=== PATIENT | female | born 1965 | race American Indian/Alaskan Native ===

== ENCOUNTER 2023-03-11 15:00 | Inpatient (IN) | payer MEDICAID ==
[2023-03-11] MEDS ORDERED: Sodium Chloride 0.9% 2.5 ML Syringe FLUSH PRN (15:04)
[2023-03-11] MEDS ORDERED: Sodium Chloride 0.9% 10 ML Syringe FLUSH PRN (15:04)
[2023-03-11 16:16] LABS: BASOPHILS ABSOLUTE AUTO 0.06 K/uL (0.00-0.20); BASOPHILS PERCENT AUTO 0.3 % (0.0-1.0); EOSINOPHILS ABSOLUTE AUTO 0.05 K/uL (0.00-0.45); EOSINOPHILS PERCENT AUTO 0.3 % (0.0-6.0); HEMATOCRIT 32.5 % (37.0-47.0); HEMOGLOBIN 10.5 g/dL (12.0-16.0); IMMATURE GRAN ABSOLUTE AUTO 0.31 K/uL (0.00-0.05); IMMATURE GRAN PERCENT AUTO 1.7 % (0.0-0.4); LYMPHOCYTES ABSOLUTE AUTO 0.95 K/uL (1.00-4.80); LYMPHOCYTES PERCENT AUTO 5.4 % (24.0-44.0); MEAN CORPUSCULAR HEMOGLOBIN 26.1 pg (28.0-32.0); MEAN CORPUSCULAR HGB CONC 32.3 g/dL (32.0-36.0); MEAN CORPUSCULAR VOLUME 80.8 fL (83.0-99.0); MEAN PLATELET VOLUME 11.1 fL (9.4-12.3); MONOCYTES ABSOLUTE AUTO 0.93 K/uL (0.00-0.80); MONOCYTES PERCENT AUTO 5.2 % (0.0-8.0); NEUTROPHILS ABSOLUTE AUTO 15.42 K/uL (1.80-7.70); NEUTROPHILS PERCENT AUTO 87.1 % (41.0-71.0); PLATELET COUNT,PLT 212 K/uL (150-400); RED BLOOD CELL COUNT 4.02 M/uL (4.10-5.30); WHITE BLOOD CELL COUNT,WBC 17.72 K/uL (3.9-11.3)
[2023-03-11 16:37] LABS: A/G RATIO 0.6 (0.9-1.6); ALBUMIN 2.6 g/dL (3.4-5.0); CALCIUM 8.3 mg/dL (8.5-10.1); CARBON DIOXIDE,CO2 21.6 mmol/L (21.0-32.0); EST CRCL DRUG DOSING (CG) 26.4 mL/min; MAGNESIUM 1.3 mg/dL (1.8-2.4); POTASSIUM,K 3.7 mmol/L (3.5-5.1); TSH ULTRASENSITIVE 0.04 uIU/mL (0.36-3.74)
[2023-03-11] MEDS ORDERED: Magnesium Sulfate/Water 2 GM in Premix Bag 1 BAG IV STA (16:47)
[2023-03-11] MEDS ORDERED: Sodium Chloride 0.9% 1,000 ML IV STA ×2 (16:47→20:03)
[2023-03-11 16:56] LABS: COLOR,URINE YELLOW; GLUCOSE,URINE NEGATIVE (NEGATIVE); KETONES,URINE NEGATIVE (NEGATIVE); LEUKOCYTE ESTERASE,URINE MODERATE (NEGATIVE); NITRITE,URINE NEGATIVE (NEGATIVE); OCCULT BLOOD,URINE TRACE-INTACT (NEGATIVE); PH,URINE 5.5 (5.0-8.0); PROTEIN,URINE 100 mg/dL (NEGATIVE)
[2023-03-11 17:02] LABS: BILIRUBIN,URINE SMALL (NEGATIVE)
[2023-03-11 17:03] LABS: APPEARANCE,URINE CLOUDY
[2023-03-11 17:06] LABS: AMPHETAMINES SCREEN, URINE PRESUMPTIVE POSITIVE (CUTOFF=500); BARBITURATE SCREEN,URINE NEGATIVE (CUTOFF=200); BENZODIAZEPINES SCREEN,URINE NEGATIVE (CUTOFF=150); BUPRENORPHINE SCREEN,URINE NEGATIVE (CUTOFF=10); METHADONE SCREEN, URINE NEGATIVE (CUTOFF=200); METHAMPHETAMINES SCREEN, URINE PRESUMPTIVE POSITIVE (CUTOFF=500); OXYCODONE SCREEN,URINE NEGATIVE (CUT0FF=100); PCP SCREEN,URINE NEGATIVE (CUTOFF=25); THC SCREEN,URINE 20 NG/ML NEGATIVE (CUTOFF=50)
[2023-03-11] MEDS ORDERED: cefTRIAXone 1 GM in Sodium Chloride 0.9% 50 ML IV STA (17:07)
[2023-03-11 17:10] LABS: AMORPHOUS SEDIMENT,URINE MODERATE (NEGATIVE); BACTERIA,URINE 3+ (NEGATIVE); EPITHELIAL CELLS,URINE FEW (NONE-FEW); RBC,URINE 0-2 (0-2/HPF); WBC,URINE 50-75 (0-5/HPF)
[2023-03-11] MEDS ORDERED: Morphine 4 MG/ML Syringe IVPUSH STA (18:28)
[2023-03-11] MEDS ORDERED: Ondansetron 4 MG/2 ML SDV IVPUSH STA (18:28)
[2023-03-11] MEDS ORDERED: Sodium Chloride 0.9% 500 ML IV STA (20:04)
[2023-03-11 20:55] LABS: CORONAVIRUS COVID-19 NAA NEGATIVE (NEGATIVE); INFLUENZA A NAA NEGATIVE (NEGATIVE); INFLUENZA B NAA NEGATIVE (NEGATIVE); RESPIRATORY SYNCYTIAL VIR NAA NEGATIVE (NEGATIVE)
[2023-03-11] MEDS ORDERED: Pneumococcal Polyvalent-23 Vaccine 0.5 ML SDV IM ONE (22:00)
[2023-03-11 23:12] LABS: LACTIC ACID 2.2 mmol/L (0.4-2.0)
[2023-03-12] MEDS: Heparin Sodium 5,000 Units/ML Vial SUBCUT SCH ×4 (00:05→21:06)
[2023-03-12] MEDS: Folic Acid 1 MG Tab PO SCH ×2 (00:05→09:06)
[2023-03-12] MEDS: Thiamine 200 MG/2 ML MDV IVPUSH SCH ×2 (00:05→09:10)
[2023-03-12] MEDS: Albuterol/Ipratropium 3.0-0.5 MG/3 ML Neb Soln NEB PRN (01:05)
[2023-03-12] MEDS: LORazepam 2 MG/ML SDV IVPUSH PRN ×3 (01:05→21:31)
[2023-03-12 05:34] LABS: BASOPHILS ABSOLUTE AUTO 0.04 K/uL (0.00-0.20); BASOPHILS PERCENT AUTO 0.3 % (0.0-1.0); EOSINOPHILS ABSOLUTE AUTO 0.19 K/uL (0.00-0.45); EOSINOPHILS PERCENT AUTO 1.3 % (0.0-6.0); HEMATOCRIT 30.2 % (37.0-47.0); HEMOGLOBIN 9.6 g/dL (12.0-16.0); IMMATURE GRAN PERCENT AUTO 1.3 % (0.0-0.4); LYMPHOCYTES ABSOLUTE AUTO 0.79 K/uL (1.00-4.80); LYMPHOCYTES PERCENT AUTO 5.2 % (24.0-44.0); MEAN CORPUSCULAR HEMOGLOBIN 25.5 pg (28.0-32.0); MEAN CORPUSCULAR HGB CONC 31.8 g/dL (32.0-36.0); MEAN CORPUSCULAR VOLUME 80.3 fL (83.0-99.0); MEAN PLATELET VOLUME 11.1 fL (9.4-12.3); MONOCYTES ABSOLUTE AUTO 1.23 K/uL (0.00-0.80); MONOCYTES PERCENT AUTO 8.1 % (0.0-8.0); NEUTROPHILS ABSOLUTE AUTO 12.65 K/uL (1.80-7.70); NEUTROPHILS PERCENT AUTO 83.8 % (41.0-71.0); PLATELET COUNT,PLT 199 K/uL (150-400); RED BLOOD CELL COUNT 3.76 M/uL (4.10-5.30)
[2023-03-12 05:59] LABS: ALBUMIN 2.3 g/dL (3.4-5.0); BILIRUBIN TOTAL 0.5 mg/dL (0.2-1.0); CARBON DIOXIDE,CO2 19.8 mmol/L (21.0-32.0); CREATININE 1.7 mg/dL (0.6-1.0); EST CRCL DRUG DOSING (CG) 32.97 mL/min; MAGNESIUM 1.9 mg/dL (1.8-2.4); POTASSIUM,K 3.3 mmol/L (3.5-5.1); PROTEIN TOTAL,TP 6.5 g/dL (6.4-8.2)
[2023-03-12 06:00] LABS: A/G RATIO 0.6 (0.9-1.6)
[2023-03-12] MEDS ORDERED: Potassium Chloride 20 MEQ Tab.ER PO ONE (08:21)
[2023-03-12] MEDS: Spironolactone 25 MG Tab PO SCH (09:06)
[2023-03-12] MEDS: Pantoprazole 40 MG Tab.CR PO SCH (09:07)
[2023-03-12] MEDS: Gabapentin 300 MG Cap PO SCH ×2 (09:08→21:06)
[2023-03-12] MEDS: Sertraline 50 MG Tab PO SCH (09:09)
[2023-03-12] MEDS ORDERED: Furosemide 40 MG/4 ML VIAL IVPUSH ONE ×2 (10:21→17:39)
[2023-03-12] MEDS ORDERED: Iopamidol 755 MG/ML 500 ML Multipack Bottle IVPUSH STA (14:40)
[2023-03-12] MEDS ORDERED: Ibuprofen 400 MG Tab PO PRN (16:26)
[2023-03-12] MEDS: Carvedilol 25 MG Tab PO SCH (17:01)
[2023-03-12] MEDS: cefTRIAXone 1 GM in Sodium Chloride 0.9% 50 ML IV SCH (17:49)
[2023-03-12] MEDS: atorvaSTATin 20 MG Tab PO SCH (21:07)
[2023-03-12] MEDS: Acetaminophen 325 MG Tab PO PRN (21:24)
[2023-03-13] MEDS: Albuterol/Ipratropium 3.0-0.5 MG/3 ML Neb Soln NEB PRN (04:13)
[2023-03-13 05:58] LABS: BASOPHILS ABSOLUTE AUTO 0.03 K/uL (0.00-0.20); BASOPHILS PERCENT AUTO 0.4 % (0.0-1.0); EOSINOPHILS PERCENT AUTO 4.7 % (0.0-6.0); HEMATOCRIT 29.7 % (37.0-47.0); HEMOGLOBIN 9.4 g/dL (12.0-16.0); IMMATURE GRAN ABSOLUTE AUTO 0.06 K/uL (0.00-0.05); IMMATURE GRAN PERCENT AUTO 0.7 % (0.0-0.4); LYMPHOCYTES ABSOLUTE AUTO 0.55 K/uL (1.00-4.80); LYMPHOCYTES PERCENT AUTO 6.4 % (24.0-44.0); MEAN CORPUSCULAR HEMOGLOBIN 25.8 pg (28.0-32.0); MEAN CORPUSCULAR HGB CONC 31.6 g/dL (32.0-36.0); MEAN CORPUSCULAR VOLUME 81.6 fL (83.0-99.0); MEAN PLATELET VOLUME 11.3 fL (9.4-12.3); MONOCYTES ABSOLUTE AUTO 0.55 K/uL (0.00-0.80); MONOCYTES PERCENT AUTO 6.4 % (0.0-8.0); NEUTROPHILS ABSOLUTE AUTO 6.98 K/uL (1.80-7.70); NEUTROPHILS PERCENT AUTO 81.4 % (41.0-71.0); PLATELET COUNT,PLT 197 K/uL (150-400); RED BLOOD CELL COUNT 3.64 M/uL (4.10-5.30); WHITE BLOOD CELL COUNT,WBC 8.57 K/uL (3.9-11.3)
[2023-03-13 06:17] LABS: CALCIUM 8.6 mg/dL (8.5-10.1); CARBON DIOXIDE,CO2 17.6 mmol/L (21.0-32.0); CREATININE 1.6 mg/dL (0.6-1.0); EST CRCL DRUG DOSING (CG) 35.03 mL/min; POTASSIUM,K 3.2 mmol/L (3.5-5.1)
[2023-03-13] MEDS: Heparin Sodium 5,000 Units/ML Vial SUBCUT SCH ×3 (06:27→23:35)
[2023-03-13] MEDS: LORazepam 2 MG/ML SDV IVPUSH PRN (06:28)
[2023-03-13] MEDS ORDERED: Potassium Chloride 20 MEQ Tab.ER PO ONE (07:28)
[2023-03-13] MEDS: Folic Acid 1 MG Tab PO SCH (08:56)
[2023-03-13] MEDS: Pantoprazole 40 MG Tab.CR PO SCH (08:56)
[2023-03-13] MEDS: Gabapentin 300 MG Cap PO SCH ×2 (08:56→20:03)
[2023-03-13] MEDS: Spironolactone 25 MG Tab PO SCH (08:56)
[2023-03-13] MEDS: Carvedilol 25 MG Tab PO SCH ×2 (08:57→17:52)
[2023-03-13] MEDS: Sertraline 50 MG Tab PO SCH (08:57)
[2023-03-13] MEDS: Thiamine 200 MG/2 ML MDV IVPUSH SCH (08:58)
[2023-03-13] MEDS: Albuterol/Ipratropium 3.0-0.5 MG/3 ML Neb Soln NEB SCH ×4 (10:24→23:35)
[2023-03-13] MEDS: Furosemide 20 MG Tab PO SCH (10:24)
[2023-03-13] MEDS: cefTRIAXone 1 GM in Sodium Chloride 0.9% 50 ML IV SCH (17:52)
[2023-03-13] MEDS: Acetaminophen 325 MG Tab PO PRN (19:48)
[2023-03-13] MEDS: atorvaSTATin 20 MG Tab PO SCH (20:04)
[2023-03-14] MEDS: Heparin Sodium 5,000 Units/ML Vial SUBCUT SCH ×3 (06:08→22:57)
[2023-03-14] MEDS: Albuterol/Ipratropium 3.0-0.5 MG/3 ML Neb Soln NEB SCH ×3 (06:08→16:59)
[2023-03-14 06:58] LABS: BASOPHILS ABSOLUTE AUTO 0.04 K/uL (0.00-0.20); BASOPHILS PERCENT AUTO 0.5 % (0.0-1.0); EOSINOPHILS ABSOLUTE AUTO 0.34 K/uL (0.00-0.45); EOSINOPHILS PERCENT AUTO 4.4 % (0.0-6.0); HEMATOCRIT 32.1 % (37.0-47.0); HEMOGLOBIN 10.2 g/dL (12.0-16.0); IMMATURE GRAN ABSOLUTE AUTO 0.05 K/uL (0.00-0.05); IMMATURE GRAN PERCENT AUTO 0.6 % (0.0-0.4); LYMPHOCYTES ABSOLUTE AUTO 1.19 K/uL (1.00-4.80); LYMPHOCYTES PERCENT AUTO 15.3 % (24.0-44.0); MEAN CORPUSCULAR HEMOGLOBIN 25.2 pg (28.0-32.0); MEAN CORPUSCULAR HGB CONC 31.8 g/dL (32.0-36.0); MEAN CORPUSCULAR VOLUME 79.3 fL (83.0-99.0); MONOCYTES ABSOLUTE AUTO 1.02 K/uL (0.00-0.80); MONOCYTES PERCENT AUTO 13.1 % (0.0-8.0); NEUTROPHILS ABSOLUTE AUTO 5.14 K/uL (1.80-7.70); NEUTROPHILS PERCENT AUTO 66.1 % (41.0-71.0); PLATELET COUNT,PLT 268 K/uL (150-400); RED BLOOD CELL COUNT 4.05 M/uL (4.10-5.30); WHITE BLOOD CELL COUNT,WBC 7.78 K/uL (3.9-11.3)
[2023-03-14 07:18] LABS: CARBON DIOXIDE,CO2 16.9 mmol/L (21.0-32.0); CREATININE 1.6 mg/dL (0.6-1.0); EST CRCL DRUG DOSING (CG) 35.03 mL/min; POTASSIUM,K 4.2 mmol/L (3.5-5.1)
[2023-03-14] MEDS ORDERED: Thiamine 100 MG Tab ONE (08:41)
[2023-03-14] MEDS: Folic Acid 1 MG Tab PO SCH (08:48)
[2023-03-14] MEDS: Thiamine 100 MG Tab PO SCH (08:48)
[2023-03-14] MEDS: Gabapentin 300 MG Cap PO SCH ×2 (08:48→20:03)
[2023-03-14] MEDS: Sertraline 50 MG Tab PO SCH (08:49)
[2023-03-14] MEDS: Spironolactone 25 MG Tab PO SCH (08:49)
[2023-03-14] MEDS: Pantoprazole 40 MG Tab.CR PO SCH (08:49)
[2023-03-14] MEDS: Furosemide 20 MG Tab PO SCH (08:49)
[2023-03-14] MEDS: Carvedilol 25 MG Tab PO SCH ×2 (08:51→16:52)
[2023-03-14] MEDS ORDERED: Folic Acid 1 MG Tab PO SCH (09:00)
[2023-03-14] MEDS ORDERED: Cefepime 2 GM in Sodium Chloride 0.9% 50 ML IV SCH (11:00)
[2023-03-14] MEDS: Cefepime 2 GM in Sodium Chloride 0.9% 50 ML IV SCH ×2 (12:02→22:56)
[2023-03-14] MEDS: Acetaminophen 325 MG Tab PO PRN ×2 (12:02→20:02)
[2023-03-14 12:04] LABS: BASE EXCESS ARTERIAL -7.6 (-2.0-3.0); BICARBONATE,ARTERIAL 18 mEq/L (22-26); PCO2 ARTERIAL 34 mmHG (35-45); PO2 ARTERIAL 74 mmHG (80-105)
[2023-03-14] MEDS ORDERED: Sodium Chloride 0.9% 500 ML IV ONE (12:22)
[2023-03-14] MEDS: Topiramate 50 MG Tab PO SCH ×2 (13:03→22:55)
[2023-03-14] MEDS: atorvaSTATin 20 MG Tab PO SCH (20:04)
[2023-03-14] MEDS ORDERED: QUEtiapine 25 MG Tab PO SCH (21:00)
[2023-03-15] MEDS: Albuterol/Ipratropium 3.0-0.5 MG/3 ML Neb Soln NEB SCH ×3 (00:15→12:33)
[2023-03-15 05:40] LABS: BASOPHILS ABSOLUTE AUTO 0.06 K/uL (0.00-0.20); BASOPHILS PERCENT AUTO 0.7 % (0.0-1.0); EOSINOPHILS ABSOLUTE AUTO 0.34 K/uL (0.00-0.45); EOSINOPHILS PERCENT AUTO 4.2 % (0.0-6.0); HEMOGLOBIN 9.5 g/dL (12.0-16.0); IMMATURE GRAN ABSOLUTE AUTO 0.05 K/uL (0.00-0.05); IMMATURE GRAN PERCENT AUTO 0.6 % (0.0-0.4); LYMPHOCYTES ABSOLUTE AUTO 0.79 K/uL (1.00-4.80); LYMPHOCYTES PERCENT AUTO 9.7 % (24.0-44.0); MEAN CORPUSCULAR HGB CONC 32.8 g/dL (32.0-36.0); MEAN CORPUSCULAR VOLUME 79.5 fL (83.0-99.0); MONOCYTES ABSOLUTE AUTO 0.93 K/uL (0.00-0.80); MONOCYTES PERCENT AUTO 11.5 % (0.0-8.0); NEUTROPHILS ABSOLUTE AUTO 5.95 K/uL (1.80-7.70); NEUTROPHILS PERCENT AUTO 73.3 % (41.0-71.0); PLATELET COUNT,PLT 294 K/uL (150-400); RED BLOOD CELL COUNT 3.65 M/uL (4.10-5.30); WHITE BLOOD CELL COUNT,WBC 8.12 K/uL (3.9-11.3)
[2023-03-15 06:00] LABS: CALCIUM 8.6 mg/dL (8.5-10.1); CARBON DIOXIDE,CO2 20.6 mmol/L (21.0-32.0); CREATININE 1.4 mg/dL (0.6-1.0); EST CRCL DRUG DOSING (CG) 40.03 mL/min
[2023-03-15] MEDS: Heparin Sodium 5,000 Units/ML Vial SUBCUT SCH (06:06)
[2023-03-15] MEDS: Topiramate 50 MG Tab PO SCH (06:06)
[2023-03-15] MEDS ORDERED: Bisacodyl 5 MG Tab PO SCH (09:00)
[2023-03-15] MEDS: Spironolactone 25 MG Tab PO SCH (09:02)
[2023-03-15] MEDS: Furosemide 20 MG Tab PO SCH (09:02)
[2023-03-15] MEDS: Folic Acid 1 MG Tab PO SCH (09:03)
[2023-03-15] MEDS: Thiamine 100 MG Tab PO SCH (09:05)
[2023-03-15] MEDS: Gabapentin 300 MG Cap PO SCH (09:08)
[2023-03-15] MEDS: Pantoprazole 40 MG Tab.CR PO SCH (09:09)
[2023-03-15] MEDS: Carvedilol 25 MG Tab PO SCH (09:54)
[2023-03-15] MEDS: Cefepime 2 GM in Sodium Chloride 0.9% 50 ML IV SCH (13:03)
== END 2023-03-15 13:05 | disposition home or self-care (01) | DRG 690 ==
LOC: MW.ED 15:00 → MW.MS 21:02 → OBSVTOIN 03-12 10:29 → MW.MS 03-12 15:15
PROVIDERS: ADMIT Internal Medicine; ATTEND Internal Medicine
PROC: 4A033R1 Measurement of Arterial Saturation, Peripheral, Percutaneous Approach (ICD-10-PCS; principal; 2023-03-12)
DX: N12 Tubulo-interstitial nephritis, not specified as acute or chronic (principal); N17.9 Acute kidney failure, unspecified; M06.9 Rheumatoid arthritis, unspecified; I10 Essential (primary) hypertension; J44.9 Chronic obstructive pulmonary disease, unspecified; F17.210 Nicotine dependence, cigarettes, uncomplicated; Z88.5 Allergy status to narcotic agent; F32.A Depression, unspecified; E83.42 Hypomagnesemia; I11.0 Hypertensive heart disease with heart failure; I50.9 Heart failure, unspecified; H91.90 Unspecified hearing loss, unspecified ear; F10.10 Alcohol abuse, uncomplicated; F15.10 Other stimulant abuse, uncomplicated; I25.10 Atherosclerotic heart disease of native coronary artery without angina pectoris; F41.9 Anxiety disorder, unspecified; G47.00 Insomnia, unspecified; F42.9 Obsessive-compulsive disorder, unspecified; Z88.8 Allergy status to other drugs, medicaments and biological substances; Z79.899 Other long term (current) drug therapy; Z90.710 Acquired absence of both cervix and uterus; Z98.890 Other specified postprocedural states; Z85.41 Personal history of malignant neoplasm of cervix uteri; Z11.52 Encounter for screening for COVID-19
CPT/HCPCS: 0241U; 36415; 36600; 71045; 71046; 71250; 71275; 74176; 80048; 80053; 80305; 81001; 82803; 83605; 83690; 83735; 84439; 84443; 84484; 85025; 85379; 85652; 86140; 87040; 87086; 93005; 93306; 93970; 94640; 96365; 96367; 96375; 99285; 93010; 96372; 96376; 99222; 99231; 99232; 99238; A9270-GY; G0378; J0692; J0696; J1644; J1940; J2060; J2270; J2405; J3411; J3475; J3490; J7030; J7620-GY; Q9967